=== PATIENT | female | born 1955 | race Caucasian/White ===

== ENCOUNTER 2024-06-23 08:15 | Emergency (ER) | payer OTHER ==
[2024-06-23 08:21] VITALS: BP 140/73; PULSE 78; RESP 18; TEMP 97.2; BMI 23.6
[2024-06-23] MEDS: predniSONE 20 MG TABLET (UD) PO ONE (08:26)
[2024-06-23] MEDS: diphenhydrAMINE HCL 25 MG CAPSULE (FP) PO ONE (08:26)
== END 2024-06-23 09:07 | disposition home or self-care (01) ==
LOC: FER 08:15
DX: R51.9 Headache, unspecified (principal); T78.40XA Allergy, unspecified, initial encounter
CPT/HCPCS: 87651; 99283-25